=== PATIENT | male | born 1990 ===

== ENCOUNTER 2016-08-21 20:38 | Emergency (ER) | payer SELFPAY ==
--- NOTE | 2016-08-21 21:15 | ED PDOC ---
Upper Extremity Pain/Injury Time Seen by Provider: 08/21/16 21:45 Chief Complaint (Nursing): Upper Extremity Problem/Injury Chief Complaint (Provider): foreign body in right arm History Per: Patient History/Exam Limitations: no limitations Onset/Duration Of Symptoms: Mins (prior to arrival) Current Symptoms Are (Timing): Still Present Additional Complaint(s): Anoop Hansen is a 25 year old male who presents to the emergency department with a complaint of a splinter in posterior elbow of right arm found prior to arrival. Denies fever, chills or swelling. PMD: none provided Past Medical History Reviewed: Historical Data, Nursing Documentation, Vital Signs Vital Signs: Last Vital Signs Temp 97.1 F L 08/21/16 20:53 Pulse 75 08/21/16 20:53 Resp 17 08/21/16 20:53 BP 140/86 08/21/16 20:53 Pulse Ox 98 08/21/16 20:53 - Family History Family History: States: Unknown Family Hx - Home Medications Home Medications: Ambulatory Orders Medication Instructions Recorded Cephalexin [cephalexin] 500 mg PO BID #20 cap 08/21/16 - Allergies Allergies/Adverse Reactions: Allergies Allergy/AdvReac Type Severity Reaction Status Date / Time No Known Allergies Allergy Verified 08/21/16 20:57 Review of Systems ROS Statement: Except As Marked, All Systems Reviewed And Found Negative Constitutional: Negative for: Fever, Chills, Other (swelling of right arm) Skin: Positive for: Other (splinter in posterior elbow of right arm) Physical Exam - Reviewed Nursing Documentation Reviewed: Yes Vital Signs Reviewed: Yes - Physical Exam Appears: Positive for: Well, Non-toxic, No Acute Distress Head Exam: Positive for: ATRAUMATIC, NORMAL INSPECTION, NORMOCEPHALIC Extremity: Positive for: Normal ROM, Other (1cm foreign body on palpation posterior to puncture wound) Neurologic/Psych: Positive for: Alert, repairer recreational vehicle II-XII, Oriented - ECG O2 Sat by Pulse Oximetry: 98 (RA) Pulse Ox Interpretation: Normal - Radiology X-Ray: Interpreted by Me (? FB noted near olecranon) Medical Decision Making Medical Decision Making: Initial Impression: Foreign body in right arm Initial Plan: * Xray elbow (right) * Xray forearm (right) Lidocaine and NS used to help bring to surface splinter, splinter removed with forceps. pt will be d/c with keflex and f.u with pmd Scribe Attestation: Documented by Ingrid Castaneda, acting as a scribe for Larisa Kirk PA-C. Provider Scribe Attestation: All medical record entries made by the Scribe were at my direction and personally dictated by me. I have reviewed the chart and agree that the record accurately reflects my personal performance of the history, physical exam, medical decision making, and the department course for this patient. I have also personally directed, reviewed, and agree with the discharge instructions and disposition. Disposition - Clinical Impression Clinical Impression: Splinter in skin - Patient ED Disposition Is Patient to be Admitted: No - Disposition Disposition: Routine/Home Disposition Time: 21:51 Condition: STABLE Prescriptions: Cephalexin [cephalexin] 500 mg PO BID #20 cap Instructions: Soft Tissue Foreign Body (ED)
--- NOTE | 2016-08-22 08:31 | RAD ---
PROCEDURE: Radiographs of the right elbow. HISTORY: ?fb COMPARISON: None available. FINDINGS: BONES: No acute displaced fracture. JOINTS: No dislocation. SOFT TISSUES: Unremarkable. No evidence of radiopaque foreign body. JOINT EFFUSION: No significant joint effusion. OTHER FINDINGS: None IMPRESSION: No acute findings. See above.
--- NOTE | 2016-08-22 08:32 | RAD ---
PROCEDURE: Radiographs of the right forearm. HISTORY: ? FB COMPARISON: None available. TECHNIQUE: Frontal and lateral views obtained. FINDINGS: BONES: No acute displaced fracture. JOINT SPACES: No dislocation. OTHER FINDINGS: Soft tissues appear unremarkable. No evidence of radiopaque foreign body. IMPRESSION: No acute findings. See above.
[2016-08-22 12:11] VITALS: BP 140/86; PULSE 75; RESP 17; TEMP 97.1; O2SAT 98
== END 2016-08-21 22:00 | disposition home or self-care (01) ==
LOC: H.ER 20:38
DX: S50.851A Superficial foreign body of right forearm, initial encounter (principal); W45.0XXA Nail entering through skin, initial encounter; Y92.89 Other specified places as the place of occurrence of the external cause